=== PATIENT | female | born 1975 ===

== ENCOUNTER → 2024-01-06 13:32 | Outpatient (REF) | payer OTHER, SELFPAY | LOC: HWWDC 13:32 | PROVIDERS: ATTENDING PHYSICIAN Nurse Practitioner | DX: Z12.31 Encounter for screening mammogram for malignant neoplasm of breast (principal) | CPT/HCPCS: 77063; 77067 ==

== ENCOUNTER 2024-09-09 18:32 | Emergency (ER) | payer OTHER, SELFPAY ==
[2024-09-09 18:37] VITALS: BP 120/78
[2024-09-09 19:52] VITALS: BP 120/71
[2024-09-09 19:55] VITALS: BMI 21.6
[2024-09-09 20:13] LABS: % Basophils 1.1 % (0-2); % Eosinophils 1.6 % (0-6); % Immature Granulocytes 0.2 % (0-0.5); % Lymphocytes 38.2 % (20.5-51.1); % Monocytes 8.9 % (1.7-9.3); Absolute Basophils 0.1 10^3/uL (0-0.2); Absolute Eosinophils 0.1 10^3/uL (0-0.7); Absolute Lymphocytes 3.4 10^3/uL (1.2-3.4); Absolute Monocytes 0.8 10^3/uL (0.1-0.6); Absolute Neutrophils 4.4 10^3/uL (1.4-6.5); Hematocrit 36.1 % (37.0-47.0); Mean Corp Hgb Conc. 33.2 g/dL (33.0-37.0); Mean Corpuscular Hgb 29.3 pg (27.0-31.0); Mean Corpuscular Volume 88.3 fL (81.0-99.0); Mean Platelet Volume 8.4 fL (7.4-10.4); Nucleated Red Blood Cells % 0 %; Platelet Count 293 10^3/uL (130-400); Red Blood Cell Count 4.09 10^6/uL (4.20-5.40); Red Cell Dist. Width 13.3 % (11.5-14.5); White Blood Cell Count 8.9 10^3/uL (4.8-10.8)
[2024-09-09 20:26] LABS: HCG, Serum Qualitative Screen Negative
[2024-09-09 20:30] LABS: ALT (SGPT) 20 U/L (0-35); AST (SGOT) 27 U/L (14-36); Albumin 4.6 g/dl (3.5-5.0); Alkaline Phosphatase 53 U/L (38-126); Blood Urea Nitrogen 19 mg/dl (7-17); Calcium 10.1 mg/dl (8.4-10.2); Carbon Dioxide 26 mmol/L (22-30); Chloride 103 mmol/L (98-107); Estimated Creatinine Clearance 58 ml/min; Glucose 91 mg/dl (70-99); Lithium 0.8 mmol/L (0.6-1.2); Potassium 4.4 mmol/L (3.5-5.1); Sodium 139 mmol/L (135-145); Total Bilirubin 0.5 mg/dl (0.2-1.3); Total Protein 7.3 g/dl (6.3-8.2); eGFR > 60.00
--- NOTE | 2024-09-09 20:54 | ED.GENMED ---
History of Present Illness
General
Chief Complaint: Crisis Evaluation
Source: patient and family
Exam Limitations: none
Time Seen by Provider: 09/09/24 19:07
Nursing documentation reviewed up to this point in time: agreed with
History of Present Illness
History of Present Illness:
Pleasant 48-year-old female that feels depressed. She states that she has had suicidal ideation off and on for the last week. She does not feel that she could act on it but she is here for help. She does not have any plans. Denies any medical
history. Does take lithium.
Review of Systems
Review of Systems
Allergies reviewed?: Yes
All Other Systems: ROS reviewed and negative except as documented in HPI and ROS
Constitutional: Reports no symptoms
EENT: Reports no symptoms
Respiratory: Reports no symptoms
Cardiac: Reports no symptoms
ABD/GI: Reports no symptoms
: Reports no symptoms
Musculoskeletal: Reports no symptoms
Skin: Reports no symptoms
Neurological: Reports no symptoms
Endocrine: Reports no symptoms
Hematologic/Lymphatic: Reports no symptoms
Psychiatric: Reports depression and anxiety
Phy Exam
General Physical Exam
General Presentation: well appearing and no apparent distress
General Skin: warm and dry
General Habitus: normal
General Mental: alert
General Hydration: appears well hydrated
ENT Exam
ENT Exam: EOMI, pharynx normal, neck supple and normocephalic
Eye Exam
Eye Exam: PERRL, cornea clear and conjunctiva normal
Cardiovascular Exam
Cardiovascular Exam: regular rate/rhythm, no edema, no murmur and normal peripheral pulses
Pulmonary Exam
Pulmonary Exam: lungs clear, no respiratory distress, no rales, no crackles, no rhonchi, no stridor, no wheezing and no cough
Gastrointestinal Exam
Gastrointestinal Exam: normal bowel sounds, non tender, soft, no organomegaly, no pulsatile mass and non distended
Neurological Exam
Neurological Exam: alert, oriented x3, no motor deficits and speech normal
Musculoskeletal Exam
Musculoskeletal Exam: full ROM and no edema
Skin Exam
Skin Exam: normal color, warm/dry, no rash and no petechia
Psychiatric Exam
Psychiatric Exam: normal mood/affect
Course
Orders/Labs/Results
Orders:
Orders
09/09/24 18:42
1:1 Observation - Suicide/ Violent Behavior As Directed
09/09/24 19:33
Crisis Consult Urgent
Reason for Consult: depression
09/09/24 19:40
Test Result ONCE
09/09/24 20:01
Complete Blood Count/With Diff Urgent
Comprehensive Metabolic Panel Urgent
HCG, Serum Qualitative Screen Urgent
[place] Urgent
09/09/24 20:[address] Non Medication Order As Directed
Physician Order: 1:1 canceled
Above order entered?: Yes
09/09/24 20:42
Fentanyl, Urine Urgent
Urine Drug Abuse Screen Urgent
Date Specimen was Collected: 09/09/24
Time Specimen was Collected: 19:49
Abnormal Lab Results
09/09/24 09/09/24
20:01 20:42
RBC 4.09 L 10^6/uL
(4.20-5.40)
Hct 36.1 L %
(37.0-47.0)
Absolute Monos (auto) 0.8 H 10^3/uL
(0.1-0.6)
BUN 19 H mg/dl
(7-17)
Urine Opiates Screen Positive H
(Negative)
Ur Tricyclics Screen Positive H
(Negative)
09/09/24 20:01
09/09/24 20:01
Vital Signs
Initial and Last Documented VS:
Initial Vital Signs
Temp Pulse Resp BP Pulse Ox
97.8 F 71 16 120/78 100
09/09/24 18:37 09/09/24 18:37 09/09/24 18:37 09/09/24 18:37 09/09/24 18:37
Last Documented Vital Signs
Temp Pulse Resp BP Pulse Ox
97.8 F 71 16 110/78 100
09/09/24 18:37 09/09/24 18:37 09/09/24 18:37 09/09/24 23:30 09/09/24 23:31
*Critical Care Note
Total Time (30-74mins, 75-104mins- exclusive of procedures): Not Applicable
ED Attending Note
-
Portions of this chart may have been created with voice recognition software.� Occasional wrong word or��sound alike� substitutions may have occurred due to the inherent limitations of voice recognition software.
Discharge Plan
Departure
Patient Disposition: Psych Facility
Date of Disposition: 09/09/24
Time of Disposition: 20:54
Patient Status:: 201
Patient with high blood pressure during this ER visit?: Yes
Condition: Fair
Discharge Problem:
Suicidal ideations, Depression
Instructions: Depression, Adult (DC), BLOOD PRESSURE
Referrals:
Caro Mendosa CRNP [Family Provider] -
Ford Andres [Active] -
Activity Restrictions/Additional Instructions:
It was a pleasure meeting you and taking part in your care. We hope for your continued healing and wellness.
Please read discharge instructions in their entirety. However, they are for general education and may not describe your exact diagnosis at discharge. Information on your ER visit and medical conditions were discussed with you along with appropriate
follow up information...
If indicated, please take your medications as instructed and indicated on discharge paperwork.
Please schedule a follow up appointment as directed. Call to schedule an appointment
Please return to the emergency department with ANY change in, persisting, or worsening of symptoms. If any of your symptoms do not improve, or persist, or become more severe within 6-12 hours, please return to the emergency department for further
care.
Please return to the emergency department if you develop a headache, neck pain/stiffness, fever greater than 100.4F, chest pain, shortness of breath, persistent nausea, vomiting, slurred speech, difficulty walking, numbness/tingling, weakness, signs
of infection or any other symptoms that are worrisome to you.
If you have any questions or concerns please do not hesitate to call the Hospital at or E-mail me directly at [email or web address]
Interventions
Interventions:
*Risk Screen - Suicide Last Done: 09/09/24 18:37
*General Assessment Last Done: 09/09/24 18:37
*Neglect/Abuse Screening Last Done: 09/09/24 18:37
ED- Fall Risk Assessment Last Done: 09/09/24 20:04
*ED COVID-19 Vaccine History Last Done: 09/09/24 23:32
*Nursing Disposition Last Done: 09/09/24 23:33
ED-Psychological Assessment Last Done: 09/09/24 20:03
Discharge Date and Time
Print Language: [place]
[2024-09-09 21:20] LABS: Amphetamines Negative (Negative); Barbiturates Negative (Negative); Benzodiazepines Negative (Negative); Buprenorphine Negative (Negative); Cocaine Negative (Negative); Marijuana Negative (Negative); Methadone Negative (Negative); Methamphetamines Negative (Negative); Opiates Positive (Negative); Phencyclidine Negative (Negative); Tricyclic Antidepressants Positive (Negative)
[2024-09-09 21:35] LABS: Fentanyl, Urine Negative (Negative)
[2024-09-09 23:30] VITALS: BP 110/78
== END 2024-09-09 23:33 ==
LOC: EMR 18:32
PROVIDERS: EMERGENCY PHYSICIAN Student in an Organized Health Care Education/Training Program; FAMILY PHYSICIAN Nurse Practitioner
DX: R45.851 Suicidal ideations (principal); F32.A Depression, unspecified
CPT/HCPCS: 99283; 80053; 80178; 80306; 80307; 84703; 85025